=== PATIENT | female | born 1970 | race Caucasian/White ===

== ENCOUNTER 2025-01-14 09:36 | Emergency (ER) | payer SELFPAY ==
[2025-01-14 09:40] VITALS: BP 117/79; PULSE 82; RESP 18; TEMP 36.6; O2SAT 98; BMI 19.2
--- NOTE | 2025-01-14 10:04 | ED_ITS ---
HPI - General Adult General Chief complaint: Ear/Nose/Throat Problem Stated complaint: sinus infection Time Seen by Provider: 01/14/25 09:38 History of Present Illness HPI narrative: Patient is a 54 year white female who presents with anxiety and sinusitis symptoms. She reports her sinusitis has bothered her on and off for the last 5 weeks. She has successfully used Zithromax in the past for this. She has had sinus surgery in [place] in 2021. Patient reports that she did not feel that was very successful. She is now moving to this area. She has had bifrontal and by maxillary area tenderness. She reports some upper mouth pain. She has had nasal congestion as well. Symptoms been present for a few weeks as mention. She also reports she is regularly on Klonopin for anxiety but does not have this. Related Data Previous Rx's ?Medication ?Instructions ?Recorded azithromycin 250 mg tablet See Rx Instructions PO .COM PLEX #6 01/14/25 (Zithromax Z-Jr) tabs hydroxyzine pamoate 25 mg capsule 25 mg PO Q6-8H PRN # 7 caps 01/14/25 (Vistaril) Allergies Allergy/AdvReac Type Severity Reaction Status Date / Time acetaminophen (From Allergy Mild Irritable Verified 01/14/25 09:47 Darvocet-N) aspirin Allergy Mild Congested Verified 01/14/25 09:43 Opioids - Morphine Analogues Allergy Mild Unknown Verified 01/14/25 09:45 propoxyphene (From Allergy Mild Irritable Verified 01/14/25 09:47 Darvocet-N) Sulfa (Sulfonamide Allergy Mild Verified 01/14/25 09:45 Antibiotics) barrium Allergy Mild Hives Uncoded 01/14/25 09:47 Review of Systems Status of ROS: Reports: 6 or more systems reviewed and unremarkable except as noted in History and below Exam Narrative: Exam Narrative: Objective: Vital signs are within normal limits Patient is alert or x3 Chest mild maxillary sinus tenderness bilaterally, no frontal tenderness. The patient has clear TMs other than wax in both ears. Neck is supple. Mental status appropriate awake and alert does not appear in distress. Const: Vital Signs, click to edit/add: Vital Signs - 24 hr 01/14/25 09:40 Temperature 97.8 F Pulse Rate [Pulse Oximeter] 82 Respiratory Rate 18 Blood Pressure [Le ft Upper Arm] 117/79 Pulse Oximetry 98 Oxygen Delivery Me thod Room Air Course Vital Signs Vital signs: Initial Vital Signs Temperature 97.8 F 01/14/25 09:40 Temperature Source Temporal Artery Scan 01/14/25 09:40 Pulse Rate 82 01/14/25 09:40 Pulse Rhythm Regular 01/14/25 09:40 Respiratory Rate 18 01/14/25 09:40 Blood Pressure 117/79 01/14/25 09:40 Blood Pressure Mean 91 01/14/25 09:40 Blood Pressure Position Sitting 01/14/25 09:40 Pulse Oximetry 98 01/14/25 09:40 Oxygen Delivery Method Room Air 01/14/25 09:40 Vital Signs Temperature 97.8 F 01/14/25 09:40 Pulse Rate 82 01/14/25 09:40 Respiratory Rate 18 01/14/25 09:40 Blood Pressure 117/79 01/14/25 09:40 Pulse Oximetry 98 01/14/25 09:40 Oxygen Delivery Method Room Air 01/14/25 09:40 Temperature 97.8 F 01/14/25 09:40 Pulse Rate 82 01/14/25 09:40 Respiratory Rate 18 01/14/25 09:40 Blood Pressure 117/79 01/14/25 09:40 Pulse Oximetry 98 01/14/25 09:40 Oxygen Delivery Method Room Air 01/14/25 09:40 Medical Decision Making MDM Narrative Medical decision making narrative: 54-year-old female with chronic sinusitis status post sinus surgery with recurrent sinusitis symptoms. Will cover with Zithromax Z-Jr as she has done successfully in the past, steam, warm drinks, sats symptomatic measures. Recommend also she follow-up other ENT when she is able. She reports she is applying for Medicaid and when she has that she will make a consultation. She also should seek primary care here. For her anxiety given she is out of her medication will give her 25 mg Vistaril tablets to 7 of them, to take 1 once or twice a day, as needed for anxiety. Cautioned about sedative effect, not to drink or drive with this or work on any heights. She was comfortable this will follow up as needed with ENT and primary care. Discharge Plan Discharge Clinical Impression: Sinusitis Patient Disposition: Home, Self-Care Condition: Stable Additional Instructions: Drink warm fluids, regular showers, breathes steam, antibiotic as prescribed. Will give you a few doses of antianxiety medicine, be careful not to drink or drive with this. Recommend you see our ENT doctor when you are able, and establish primary care here as you moved to this community. Activity Level: Light activity Discharge Diet: Regular Prescriptions: New azithromycin [Zithromax Z-Jr] 250 mg tablet See Rx Instructions .ROUTE .COMPLEX Qty: 6 0RF Rx Instructions: For 250 mg dose pack: take 500 mg today (day 1), then 250 mg for 4 days (days 2-5) hydroxyzine pamoate [Vistaril] 25 mg capsule 25 mg PO Q6-8H PRNQty: 7 0RF Stand Alone Forms: [facility] Info Instructions
== END 2025-01-14 10:29 | disposition home or self-care (01) ==
LOC: ED 10:30
PROVIDERS: Emergency Provider Family Medicine
DX: J32.0 Chronic maxillary sinusitis (principal)
CPT/HCPCS: 99283

== ENCOUNTER 2025-03-04 17:13 | Emergency (ER) | payer MEDICAID, SELFPAY ==
--- OUTSIDE RECORDS SUMMARY | 2025-03-04 17:16 | XMS_ITS | Clinical Summary ---
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 Phone None Primary Care Provider Unavailabl e Allergies No known active allergies Encounters Date Type Department Care Team Description 02/14/2025 4:10 PM CDT - 02/14/2025 5:38 PM CDT Emergency [facility] [address] [place] [address] [place] Upper respiratory tract infection, unspecified type (Primary Dx); History of anxiety Discharge Disposition: Home Self Care 02/14/2025 Travel from Last 3 Months Social History Tobacco Use Types Packs/Day Years Used Date Smoking Tobacco: Never Assessed Interpersonal Safety Answer Date Record ed Are you being hit, kicked, p ushed or yelled at (see row info)? No 02/14/2025 Interpersonal Safety Abuse 12 - 18 Not on file 02/14/2025 Interpersonal Safety Ambulatory Vulnerability No t on file 02/14/2025 Comments Unknown Sex and Gender Information Value Date Recorded Sex Assigned at Not on file Legal Sex Female 4:03 PM CDT Gender Identity Not on file Sexual Orientation Not on file Last Filed Vital Signs Vital Sign Reading Time Taken Comments Blood Pressure 107/57 02/14/2025 4:22 PM CDT Pulse 97 02/14/2025 4:22 PM CDT Temperature 37.9 C (100.2 F) 02/14/2025 4:22 PM CDT Respiratory Rate 16 02/14/2025 4:22 PM CDT Oxygen Saturation 96% 02/14/2025 4:22 PM CDT Inhaled Oxygen Concentration - - Weight 44.5 kg (98 lb 3.2 oz) 02/14/2025 4:22 PM CDT Height 152.4 cm (5') 02/14/2025 4:22 PM CDT Body Mass Index 19.18 02/14/2025 4:22 PM CDT Plan of Treatment Not on file Insurance [facility] Member Subscriber Plan / Payer (Ef fective 2025-Present) Name:Anahi Foote Member ID:[id number] Relation to Subscriber:Self Name:Anahi Foote Subscriber ID:[id number] Payer ID:Not on file Group ID:Not on file Type:Not on file Address: [facility] MEDICA[employer] 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 PCP - General 02/14/25
[2025-03-04 17:29] VITALS: BP 122/70; PULSE 84; RESP 18; TEMP 37.4; O2SAT 94; BMI 19.4
--- NOTE | 2025-03-04 18:14 | CRLHL7_ITS ---
For Patients: As a result of the Century Cures Act, medical imaging exams and procedure reports are released immediately into your electronic medical record. You may view this report before your referring provider. If you have questions, please contact your health care provider. Indication: Concern for pneumonia Technique: Chest 2 views. Comparison: None. Findings/Impression: Cardiovascular and mediastinum: Heart size is normal. Unremarkable mediastinum. Lungs and pleural spaces: Lungs are clear. No pleural effusion or pneumothorax. Bones and soft tissues: No significant findings. Dictated by Deepti Mayfield MD @ 03/04/2025 6:35:14 PM (Electronically Signed)
--- NOTE | 2025-03-04 18:22 | ED_ITS ---
HPI - General Adult General Date Seen: 03/04/25 Chief complaint: Cough Stated complaint: sinus infection, anxiety Time Seen by Provider: 03/04/25 17:15 Source: patient Mode of arrival: ambulatory Limitations: no limitations History of Present Illness HPI narrative: Pre seen is a 54-year-old female presenting for multiple concerns but her biggest concern is her sinus issues. She states 1 month ago she was seen for sinus pain and was discharged home. She was told it was most likely viral in nature. She states since then she has started developed green sputum. States in the morning she feels like she has a bunch of phlegm in the back for throat and gets congested. Also states she feels like it is hard to breathe occasionally in the mornings due to the drainage from her sinuses. States the some of this is triggering her asthma. She does use an albuterol inhaler which helps usually but does state there a couple episodes where she feels like it did not help. At this time she does not feel like she needs another breathing treatment. Is also concerned because she has recently moved to [facility] and was previously prescribed Flexeril for her degenerative disc disorder. She has run out of this has not been able to get a primary care provider yet so she could get a prescription. Denies a sore throat. Denies fevers, headache, lightheadedness, dizziness, chest pain, abdominal pain, weakness, numbness. Has been having occasional chills. Related Data Previous Rx's ?Medication ?Instructions ?Recorded azithromycin 250 mg tablet See Rx Instructions PO .COM PLEX #6 01/14/25 (Zithromax Z-Jr) tabs hydroxyzine pamoate 25 mg capsule 25 mg PO Q6-8H PRN # 7 caps 01/14/25 (Vistaril) albuterol sulfate 90 mcg/actuation 2 puff inhalation Q ID #8.5 grams 03/04/25 aerosol inhaler azithromycin 250 mg tablet 250 mg PO DAILY 4 days #4 t abs 03/04/25 (Zithromax) cyclobenzaprine 10 mg tablet 10 mg PO TID PRN muscle s pasm #21 03/04/25 tabs Allergies Allergy/AdvReac Type Severity Reaction Status Date / Time acetaminophen (From Allergy Mild Irritable Verified 01/14/25 09:47 Darvocet-N) aspirin Allergy Mild Congested Verified 01/14/25 09:43 Opioids - Morphine Analogues Allergy Mild Unknown Verified 01/14/25 09:45 propoxyphene (From Allergy Mild Irritable Verified 01/14/25 09:47 Darvocet-N) Sulfa (Sulfonamide Allergy Mild Verified 01/14/25 09:45 Antibiotics) barrium Allergy Mild Hives Uncoded 01/14/25 09:47 Review of Systems Status of ROS: Reports: 10 or more systems reviewed and unremarkable except as noted in History and below PFSH [facility] Social History Smoking Status: Current every day smoker Do you use any of these nicotine containing products: None How often do you have a drink containing alcohol: never AUDIT-C Alcohol total score: 0 Non-prescribed substance use: denies use Exam Narrative: Exam Narrative: Const: Well-nourished, Well-developed, in mild distress Eyes: PERRL, no conjunctival injection, and symmetrical lids HENT: Atraumatic external nose and ears. Moist mucous membranes. Sinus tenderness bilateral to her maxillary and frontal sinuses. Uvula midline, no tonsillar exudate or swelling. Neck: Symmetric, trachea midline, No thyromegaly. CVS: RRR, No murmurs or gallops. Peripheral pulses 2+ and equal in all extremities RESP: Unlabored respiratory effort. Clear to auscultation bilaterally. GI: Nontender/Nondistended, No rebound or guarding. MSK:Extremities w/o deformity, Normal Active ROM Skin: Warm, Dry. No rashes or lesions. Neuro: Normal Muscle tone, No focal neurological deficits. Psych: Awake, Alert, & Oriented x3. Appropriate mood and affect. Const: Vital Signs, click to edit/add: Vital Signs - 24 hr 03/04/25 17:29 Temperature 99.4 F Pulse Rate [Pulse Oximeter] 84 Respiratory Rate 18 Blood Pressure [Ri ght Upper Arm] 122/70 Pulse Oximetry 94 Oxygen Delivery Me thod Room Air Course Vital Signs Vital signs: Initial Vital Signs Temperature 99.4 F 03/04/25 17:29 Temperature Source Temporal Artery Scan 03/04/25 17:29 Pulse Rate 84 03/04/25 17:29 Respiratory Rate 18 03/04/25 17:29 Blood Pressure 122/70 03/04/25 17:29 Blood Pressure Mean 87 09/10/25 17:29 Pulse Oximetry 94 03/04/25 17:29 Oxygen Delivery Method Room Air 03/04/25 17:29 Vital Signs Temperature 99.4 F 03/04/25 17:29 Pulse Rate 84 03/04/25 17:29 Respiratory Rate 18 03/04/25 17:29 Blood Pressure 122/70 03/04/25 17:29 Pulse Oximetry 94 03/04/25 17:29 Oxygen Delivery Method Room Air 03/04/25 17:29 Temperature 99.4 F 03/04/25 17:29 Pulse Rate 84 03/04/25 17:29 Respiratory Rate 18 03/04/25 17:29 Blood Pressure 122/70 03/04/25 17:29 Pulse Oximetry 94 03/04/25 17:29 Oxygen Delivery Method Room Air 03/04/25 17:29 Medications Administered Medications: Discontinued Medications Generic Name Dose Route Start Last Admin Trade Name Freq PRN Reason Stop Dose Admin Azithromycin 500 mg 03/04/25 19:17 03/04/25 19:56 Azithromycin 250 Mg Tablet PO 03/04/25 19:18 500 mg ONCE ONE Administration Medical Decision Making [facility] Narrative Medical decision making narrative: Patient is a 54-year-old female presenting for what sounds like a sinus infection. She is not having signs of a cavernous sinus thrombosis. Do not believe head imaging is necessary for her sinusitis. She does say her shortness of breath feels mostly in the upper neck when it occurs but I will do an x-ray to look for signs pneumonia. Her vital signs are otherwise stable and I do not believe lab work is necessary at this time. Her back pain is chronic and I do not believe imaging is necessary. Chest x-ray reviewed myself the radiologist shows no acute concerning abnormalities. At this time she is safe for discharge. Since sinus symptoms have been going on for over 10 days I will treat her with antibiotics. She states the only antibiotic she is not allergic to is azithromycin. Will order her a Z-Jr. First dose will be given here in the emergency department. Also prescribe her Flexeril for her back pain and will prescribe her an inhaler for her asthma. Information for primary care follow-up was provided. Imaging Data Chest x-ray: Radiologist's impression: Cardiovascular and mediastinum: Heart size is normal. Unremarkable mediastinum. Lungs and pleural spaces: Lungs are clear. No pleural effusion or pneumothorax. Bones and soft tissues: No significant findings. Dictated by Deepti Mayfield MD @ 03/04/2025 6:35:14 PM Discharge Plan Discharge Clinical Impression: Sinusitis Patient Disposition: Home, Self-Care Condition: Stable Instructions: Sinusitis (ED) Additional Instructions: Take the antibiotics as directed. Start taking it tomorrow 03/05/2025. Recommend following up with the PCP. Information for a PCP will be provided Prescriptions: New cyclobenzaprine 10 mg tablet 10 mg PO TID PRN (Reason: muscle spasm) Qty: 21 0RF azithromycin [Zithromax] 250 mg tablet 250 mg PO DAILY 4 Days Qty: 4 0RF Rx Instructions: 250 mg orally; albuterol sulfate 90 mcg/actuation HFA aerosol inhaler 2 puff inhalation QID Qty: 8.5 2RF No Action azithromycin [Zithromax Z-Jr] 250 mg tablet See Rx Instructions .ROUTE .COMPLEX Qty: 6 0RF Rx Instructions: For 250 mg dose pack: take 500 mg today (day 1), then 250 mg for 4 days (days 2-5) hydroxyzine pamoate [Vistaril] 25 mg capsule 25 mg PO Q6-8H PRNQty: 7 0RF Follow Up/Referrals: Provider,Not a Local [Primary Care Provider, Family Practice] Stand Alone Forms: [facility] Info Instructions
[2025-03-04] MEDS: AZITHROMYCIN 250 MG TABLET 500 MG PO (19:56)
== END 2025-03-04 20:01 | disposition home or self-care (01) ==
PROVIDERS: Emergency Provider Student in an Organized Health Care Education/Training Program
DX: J32.9 Chronic sinusitis, unspecified (principal)
CPT/HCPCS: 71046; 99283; 99284; A9270